=== PATIENT | female | born 1995 | race Caucasian/White ===

== ENCOUNTER 2024-02-28 09:31 | Inpatient (IN) | payer MEDICAID, SELFPAY ==
[2024-02-28] VITALS (15 sets, daily range): BP systolic 110–149; BP diastolic 59–86; PULSE 73–93; RESP 16–19; TEMP 36.1–36.6; O2SAT 97–100; BMI 45.5
--- NOTE | 2024-02-28 | FALS_PTH ---
PATIENT: TREVON RUSSELL LOC: [facility] U#:[id number] AGE/SX: 29/F ROOM: [facility] RE02/28/[address]: Dr. Nathaly Watkins, MDDOB: 1995 BED: 1 DIS: 03/01/2024 SPEC #: [id number] RECD: 02/28/24 09:14 STATUS: THEO NADIRA #: [id number] KALYANI: 02/28/24 00:[address]: Nathaly Watkins DEPT: SURGICAL PATHOLOGY RECD BY: Terence King ENTERED: 02/29/24 10:16 SP TYPE: FALL TUBES OTHR DR: Dr. Jason Villa, Tissues: Fallopian tube Procedures: Surgery Specimen Level II HEADER OPERATION: Tubal ligation PRE-OP DIAGNOSIS: Sterilization TISSUE SUBMITTED: Bilateral fallopian tubes- stitch on right MICROSCOPIC DIAGNOSIS Bilateral fallopian tubes, salpingectomy: Bilateral fallopian tubes, no pathologic diagnosis. JESS: 03/01/2024 MICROSCOPIC DESCRIPTION Slides are reviewed. GROSS DESCRIPTION Received in fixative is one container labeled with the patient's name and designated bilateral fallopian tubes- stitch on right. The specimen consists of bilateral fallopian tubes including fimbrial ends. Right fallopian tube measures 6.5 cm in length and 0.6 cm in diameter. Left fallopian tube measures 7.5cm in length and 0.6cm in diameter. Sections reveal unremarkable cut surfaces. Aerodynamicist sections are submitted in two cassettes. 1- right fallopian tube, 2- left fallopian tube. / JESS: 02/29/2024 TC:4 CPT: 77052 x2
[2024-02-28] MEDS: Lactated Ringers 1,000 ML 999 ML IV (10:10)
[2024-02-28 10:33] LABS: Absolute Lymphocyte Count 1.44 X10^3/uL (0.83-4.51); Absolute Neutrophil Count 9.8 X10^3/uL (2.0-7.7); Basophil# 0.03 X10^3/uL; Basophil% 0.3 % (0-1); Eosinophil# 0.05 X10^3/uL; Eosinophils% 0.4 % (0-5); Hematocrit 35.3 % (37-47); Hemoglobin 11.4 g/dL (12.0-15.0); Lymphocyte # 1.44 X10^3/ul (0.83-4.51); Lymphocyte % 12.1 % (19-41); Mean Corp Hgb Conc 32.3 g/dL (32-36); Mean Corpuscular Hgb 26.2 pg (27.0-32.0); Mean Corpuscular Volume 81.1 fL (81-99); Mean Platelet Vol. 10.8 fl (6.2-12.0); Monocyte# 0.51 X10^3/uL; Monocyte% 4.3 % (0-10); NRBC Flagged by Analyzer 0 % (0-5); Neutrophil # 9.78 X10^3/uL (2.7-7.7); Neutrophil % 82.2 % (47-70); Platelet Count 257 K/mm3 (150-450); Red Blood Count 4.35 M/mm3 (4.2-5.4); White Blood Count 11.9 K/mm3 (4.4-11.0)
[2024-02-28] MEDS: Lactated Ringers 1,000 ML 150 ML IV (11:11)
[2024-02-28] MEDS: Acetaminophen 500 MG Tablet 1000 MG PO ×3 (11:12→23:39)
[2024-02-28 11:26] LABS: Syphilis Antibodies Non-reactive
--- NOTE | 2024-02-28 11:46 | PCM.HP.BLA ---
History and Physical Date of Admission: 02/28/24 Expand All Collapse All Pre-Op History and Physical HPI: The patient is a 29 year old female presenting for pre-operative visit. She is scheduled for and bilateral salpingectomy, for repeat cs and desires sterilization on 02/28/24. Procedure discussed along with risks, benefits and complications. Other alternatives discussed for management. Consent form signed? Yes. PAST MEDICAL HISTORY PAST MEDICAL HISTORY 12/14/2023: Antepartum anemia complicating in third trimester 10/25/2019: Gestational hypertension, third trimester Comment: - BP on admission normal range - Labs 10/24 wnl - Asymptomatic - Repeat admission labs pending 08-05-2019: Hx of preeclampsia, prior , currently No date: Morbid obesity (HCC) PAST SURGICAL HISTORY PAST SURGICAL HISTORY 2019: DELIVERY ONLY CURRENT MEDICATIONS Current Outpatient Medications Medication Sig Dispense Refill ? omeprazole (PRILOSEC) 10 mg capsule Take 1 capsule by mouth once daily. 30 capsule 3 ? aspirin, enteric coated (ASPIRIN, ENTERIC COATED) 81 mg EC tablet Take 2 tablets by mouth once daily. Starting at 12 weeks. 100 tablet 3 ? acetaminophen (TYLENOL) 325 mg tablet Take 2 tablets by mouth every 4 hours as needed for Pain. 60 tablet 1 ? vit/iron fum/folic ac ( VITAMIN ORAL) Take 1 tablet by mouth once daily. ? Blood Pressure Kit-Extra Large kit 1 Each two times a day as needed. 1 Kit 0 ? Blood Pressure Test Kit-Large 1 Each once daily. 1 Each 0 No current facility-administered medications for this visit. ALLERGIES: Penicillins PERSONAL HISTORY: SOCIAL HISTORY Social History Tobacco Use ? Smoking status: Never ? Smokeless tobacco: Never Vaping Use ? Vaping status: Never Used Substance Use Topics ? Alcohol use: Not Currently ? Drug use: Not Currently FAMILY HISTORY: FAMILY HISTORY FAMILY HISTORY Problem Relation Age of Onset ? No Known Problems Mother ? No Known Problems Father ? No Known Problems Sister ? No Known Problems Maternal Grandmother ? No Known Problems Maternal Grandfather ? No Known Problems Paternal Grandmother ? No Known Problems Paternal Grandfather REVIEW OF SYMPTOMS: negative except as noted above PHYSICAL EXAMINATION: VITALS: Blood pressure 128/76, weight 120.2 kg (265 lb), last menstrual period 05/19/2023. GENERAL: The patient is well nourished, well hydrated in no acute distress. , The patient is oriented to time, place, and person. NECK: full range of motion LUNGS: ABDOMEN: gravid, non tender IMPRESSION: 29yo @ 37.4 weeks h/o c/s, desires sterilization PLAN: repeat cs and bilateral salpingectomy planned at 39 weeks Pt has been counseled on risks/benefits and alternatives of surgery including but not limited to anesthesia, bleeding, infection, injury to pelvic structures including bowel, bladder, ureters and vessels. Pt wishes to proceed with surgery at this time. Risk of transfusion reviewed. Pre op instructions reviewed. Pre op ancef x 3 g ordered- hives as a child- discussed possible small cross reactivity. Does not have anaphylaxis I have reviewed and updated past medical and surgical history, medications and allergies Nathaly Fowler MD Routine Office Visit on 02/18/2024 Note shared with patient
[2024-02-28] MEDS: Sodium Citrate/Citric Acid 30 ML UDC PO (11:55)
[2024-02-28] MEDS: Cefazolin 3 GM in 0.9% Normal Saline (100mL Bag) 100 ML IV (11:59)
--- NOTE | 2024-02-28 13:09 | OP.PCM_ITS ---
Details Operative Information Date of Procedure: 02/28/24 Pre-Operative Diagnosis: repeat c/s, 39 weeks, Obesity in , Desires sterilization Post-Operative Diagnosis: same, live female Classification: Scheduled Procedure Type: low transverse (Bilateral salpingectomy ) signal integrity engineer #1: Janet Saul Type of Anesthesia: Spinal Antibiotic Given: Ancef 3 grams IV x1 Drain: Daly to straight drain Estimated Blood Loss: 650 Fluids Replaced: 700 Procedure Start Time: 12:21 Procedure Stop Time: 13:01 Time of Delivery: 12:27 Findings Description of Procedure: After informed consent was obtained the patient was taken to the operating room she was given spinal anesthesia. she was placed in the supine position. She wa s then prepped and draped in normal sterile fashion. Once spinal anesthesia was found to be adequate skin incision was made with a scalpel in a Pfannenstiel fashion. It was carried down to the underlying layer of the fascia. Fascia was then incised midline with scapel and extended laterally using curved jasso. 2 straight Randi's were placed in the superior aspect of the fascial edge and the rectus muscles were dissected off sharply. Attention was then turned to the inferior aspect where again the fascial edge was grasped with 2 straight Sidney clamps tented up and the rectus muscle dissected off sharply. At this time the rectus muscles were seperated bluntly. Using blunt force the peritoneum was then entered. Metzenbaums were used to take down the rectus muscles inferiorly as well as the peritoneum. At this time the vesicouterine peritoneum was identified. Metzenbaum scissors were used to create a bladder flap and then taken down digitally. Uterine incision was made in a low transverse fashion with the scalpel and then entered bluntly. Gentle opposing traction was placed to extend the uterine incision. The membranes were ruptured amniotic fluid clear. 's head was then brought to the uterine incision was delivered atraumatically followed by the rest infant's body. Loose nuchal x 1 reduced prior to delivery of infant. At this time delayed cord clamping was performed mouth nose were suctioned. Infant was then handed to the waiting nursery team. The placenta was then removed with gentle traction. The uterus was removed from the intra-abdominal cavity is wrapped in a moist lap. He was cleared of all clots and debris using a moist lap. Ring clamps were placed on the uterine angles. #1 Vicryl suture was used in a running locked fashion for the first l kalen. At this time then the uterus was placed back into abdominal cavity uterine incision was evaluated and noted to be of good hemostasis. Tubes and ovaries were evaluated they were normal. The tubes were grasped in an avascular area with the Jean ligasure used to coagulate and ligate along mesosalpinx to remove tubes completely- repeated on both sides. uterus was placed back into the abdominal cavity. Great hemostasis was appreciated at this time the uterine incision was again evaluated good hemostasis was appreciated. The peritoneum was grasped with Kellys. Peritoneum was reapproximated using #2 Vicryl suture in a running fashion. The fascia was found to be very thin but intact and was then reapproximated using #1 PDS in a running fashion. Subcutaneous layer was evaluated and Bovie was used for any small oozing that was noted, irrigated with NS and then closed with #2-0 plain gut suture was then used to reapproximate the subcutaneous layer 4-0 Vicryl on a Bobby needle was used to reapproximate the skin in a subcutaneous fashion. Dry sterile dressing was applied. Instrument lap needle count were correct ?2. Anticipated normal postoperative course for this patient. Presentation: Positive for Vertex Amniotic Membrane Rupture Type: Artificial Amniotic Fluid Description: Clear Placental Delivery Description: Spontaneous Placenta Disposition: [facility] Cord Vessel Description: 3 Vessels Cord Entanglement: Around neck x 1, loose Nuchal Cord Compression: Without compression A Gender: Female (1 minute): 9 (5 minute): 9 Delayed Cord Clamping: Yes Complications Risks of Surgery Discussed w/Patient: Bleeding, Anesthesia Risks, Infection, Permanency, Injury to surrounding structure(s) including bowel and bladder and Availability of other non-permanent control options Complications: none
[2024-02-28] MEDS: Oxytocin 15 Units/NS 250ml 15 UNITS/250 ML IV.SOLN 83 UNITS IV (13:22)
[2024-02-28] MEDS: 0.9% Saline Lock 10 ML Syringe IV (13:58)
[2024-02-28] MEDS: Ketorolac 30 MG/ML Syringe IV ×2 (13:58→20:05)
[2024-02-28] MEDS: Lactated Ringers 1,000 ML 100 ML IV (16:22)
--- NOTE | 2024-02-28 17:39 | NURSING ---
serena made aware of drainage on dressing while making rounds
--- NOTE | 2024-02-28 19:33 | NURSING ---
silver mepilex changed per Jcostas request. Old dressing removed without difficulty with moderate amount serosanguinous drainage. No active bleeding noted. sterile silver mepilex dressing. Tolerated well
[2024-02-28 23:06] LABS: Pathology Specimen OB SEE PATHOLOGY REPORT
[2024-02-29] MEDS: Enoxaparin 40 MG/0.4 ML Syringe SC ×2 (00:41→14:10)
[2024-02-29] MEDS: Ketorolac 30 MG/ML Syringe IV ×2 (02:03→08:14)
[2024-02-29] MEDS: 0.9% Saline Lock 10 ML Syringe IV ×3 (02:04→08:15)
[2024-02-29 04:03] VITALS: BP 130/83; PULSE 80; RESP 16; TEMP 36.4; O2SAT 100
[2024-02-29] MEDS: Rho(D) Immune Globulin 300 MCG (1500 Unit) Syringe IV (04:47)
[2024-02-29 05:23] LABS: Hematocrit 32.2 % (37-47); Hemoglobin 10.1 g/dL (12.0-15.0); Mean Corp Hgb Conc 31.4 g/dL (32-36); Mean Corpuscular Hgb 25.7 pg (27.0-32.0); Mean Corpuscular Volume 81.9 fL (81-99); Mean Platelet Vol. 10.7 fl (6.2-12.0); Platelet Count 220 K/mm3 (150-450); RBC Distribution Width CV 17.1 % (11.6-14.6); RBC Distribution Width SD 50.9 fl (35.1-43.9); Red Blood Count 3.93 M/mm3 (4.2-5.4); White Blood Count 11.5 K/mm3 (4.4-11.0)
[2024-02-29] MEDS: Acetaminophen 500 MG Tablet 1000 MG PO ×4 (05:40→23:20)
[2024-02-29 08:02] VITALS: BP 136/77; PULSE 75; RESP 18; TEMP 36.3; O2SAT 98
--- NOTE | 2024-02-29 08:59 | PCM.PN.OB ---
Subjective Subjective Doing well. Ambulating and voiding without difficulty. Mild lochia. Bottle feeding. Pain managed Objective Data Objective Data Vital Signs: Vital Signs Temp Pulse Resp BP Pulse Ox O2 Del Method 97.3 F L 75 18 136/77 H 98 Room Air 02/29/24 08:02 02/29/24 08:02 02/29/24 08:02 02/29/24 08:02 02/29/24 08:02 02/29/24 08:02 Oxygen Delivery Method Room Air Weight: 120.287 kg Body Mass Index (BMI) 45.5 Intake & Output: Intake and Output for Last 24 Hours 02/27/24 02/28/24 02/29/24 23:59 23:59 23:59 Intake Total 1831.5 / 1831.5 838.33 / 838.33 Output Total 1095 / 1095 1100 / 1100 Balance 736.5 / 736.5 -261.67 / -261.67 Lab / Micro Data 02/29/24 05:10 Labs: Laboratory Results - last 24 hr 02/28/24 10:15: WBC 11.9 H, RBC 4.35, Hgb 11.4 L, Hct 35.3 L, MCV 81.1, MCH 26.2 L, MCHC 32.3, RDW Std Deviation 50.0 H, RDW Coeff of Caroline 17.0 H, Plt Count 257, MPV 10.8, Immature Gran % (Auto) 0.700, Neut % (Auto) 82.2 H, Lymph % (Auto) 12.1 L, [place] % (Auto) 4.3, Eos % (Auto) 0.4, Baso % (Auto) 0.3, Absolute Neuts (auto) 9.8 H, Absolute Lymphs (auto) 1.44, Nucleated RBC % 0, Syphilis Total Ab Non-reactive, Blood Type O NEGATIVE, Antibody Screen NEGATIVE 02/28/24 15:09: Screen NEGATIVE, Baby's Blood Type O POSITIVE, Baby's COOPER POSITIVE 02/29/24 05:10: WBC 11.5 H, RBC 3.93 L, Hgb 10.1 L, Hct 32.2 L, MCV 81.9, MCH 25.7 L, MCHC 31.4 L, RDW Std Deviation 50.9 H, RDW Coeff of Caroline 17.1 H, Plt Count 220, MPV 10.7 ROS Constitutional Constitutional: Denies fatigue, fever(s) or malaise Eyes Eyes: Denies change in vision ENT HEENT: Denies dizziness or headache(s) Cardiovascular Cardiovascular: Denies chest pain, dyspnea or lightheadedness Respiratory/Chest Respiratory/Chest: Denies cough or dyspnea Gastrointestinal Gastrointestinal: Denies change in bowel habits Genitourinary Genitourinary: Denies burning urination or genital lesions Integumentary Integumentary: Denies rash Neurologic Neurologic: Denies confusion, dizziness, headache(s), numbness or weakness Physical Exam Const alert General Appearance: cooperative GI GI Narrative: soft, moderate distention, fundus firm, appropriately tender. Abdominal bandage clean dry and intact Assessment & Plan (1) S/P repeat low transverse : (2) Sterilization:
[2024-02-29] MEDS: Senna/Docusate Sodium 1 Tablet PO (11:11)
[2024-02-29 12:30] VITALS: BP 127/77; PULSE 79; RESP 16; TEMP 36.1; O2SAT 98
[2024-02-29] MEDS: Ibuprofen 600 MG Tablet PO ×2 (14:09→19:47)
--- NOTE | 2024-02-29 14:14 | NURSING ---
student charting reviewed
[2024-02-29 15:51] VITALS: BP 133/89; PULSE 77; RESP 16; TEMP 36.3; O2SAT 100
[2024-02-29 19:44] VITALS: BP 125/85; PULSE 75; RESP 16; TEMP 36.7; O2SAT 99
[2024-03-01 01:23] VITALS: BP 128/85; PULSE 74; RESP 16; TEMP 36.9
[2024-03-01] MEDS: Enoxaparin 40 MG/0.4 ML Syringe SC (01:32)
[2024-03-01] MEDS: Ibuprofen 600 MG Tablet PO ×3 (01:32→13:55)
[2024-03-01] MEDS: Acetaminophen 500 MG Tablet 1000 MG PO ×2 (05:13→11:30)
--- NOTE | 2024-03-01 07:42 | PCM.PN.OB ---
Subjective Subjective Doing well. Ambulating and voiding without difficulty. Mild lochia. Bottle feeding. Pain managed Objective Data Objective Data Vital Signs: Vital Signs Temp Pulse Resp BP Pulse Ox O2 Del Method 98.4 F 74 16 128/85 H 99 Room Air 03/01/24 01:23 03/01/24 01:23 03/01/24 01:23 03/01/24 01:23 02/29/24 19:44 03/01/24 01:23 Oxygen Delivery Method Room Air Weight: 120.287 kg Body Mass Index (BMI) 45.5 Intake & Output: Intake and Output for Last 24 Hours 02/28/24 02/29/24 03/01/24 23:59 23:59 23:59 Intake Total 1831.5 / 1831.5 838.33 / 838.33 Output Total 1095 / 1095 1100 / 1100 Balance 736.5 / 736.5 -261.67 / -261.67 Lab / Micro Data 02/29/24 05:10 ROS Constitutional Constitutional: Denies fatigue, fever(s) or malaise Eyes Eyes: Denies change in vision ENT HEENT: Denies dizziness or headache(s) Cardiovascular Cardiovascular: Denies chest pain, dyspnea or lightheadedness Respiratory/Chest Respiratory/Chest: Denies cough or dyspnea Gastrointestinal Gastrointestinal: Denies change in bowel habits Genitourinary Genitourinary: Denies burning urination or genital lesions Integumentary Integumentary: Denies rash Neurologic Neurologic: Denies confusion, dizziness, headache(s), numbness or weakness Physical Exam Const alert General Appearance: cooperative GI GI Narrative: soft, moderate distention, fundus firm, appropriately tender. Abdominal bandage clean dry and intact Assessment & Plan (1) S/P repeat low transverse : (2) Sterilization: PLAN: Plan discharge home
--- NOTE | 2024-03-01 07:43 | PCM.DC.SUM ---
Providers Date of Admission: 02/28/24 Date of Discharge: 03/01/24 Primary Care Physician: Dr. Jason Villa DO Reason For Visit: REPEAT C SECTION,REPEAT DELIVERY Diagnosis Discharge Diagnosis (1) S/P repeat low transverse : Status: Acute Code(s): Z98.891 - History of uterine scar from previous surgery (2) Sterilization: Status: Acute Code(s): Z30.2 - Encounter for sterilization Plan discharge home Medications at Discharge Home Medications omeprazole 10 mg capsule,delayed release 10 mg PO DAILY Heartburn 02/28/24 vit no.95-ferrous fumarate 28 mg-folic acid 800 mcg tablet () 1 tab PO DAILY 02/28/24 ibuprofen 600 mg tablet 600 mg PO Q6H #30 tabs 03/01/24 Hospital Course Operations section (w/tubal) Summary of Care Provided Minutes Spent on Discharge: 22 Hospital Course: Scheduled repeat with tubal. Uncomplicated . Physical Exam Const alert General Appearance: cooperative GI GI Narrative: soft, moderate distention, fundus firm, appropriately tender. Abdominal bandage clean dry and intact Weight / BMI Weight Weight: 120.287 kg Body Mass Index (BMI) 45.5 ABG / Lab / Microbiology Data 02/29/24 05:10 D/C Instructions Discharge Diet: No restrictions May resume sexual activity in: 4-6 weeks Lifting Restrictions: 20 pounds Additional Activity Instructions: Nothing in the vagina for 4-6 weeks. You may return to work/school in 6 weeks. Call your doctor if your incision/area has: Continuous Slow Oozing, Sudden Increased Bleeding, Increased Pain/ Swelling, Increased Redness and Foul Smelling Discharge Call your doctor if you observe: Fever of 101 or Higher and Using more than 1 pad per hour (for 2 hours) Suture Line Care: Avoid Pulling/Pushing and Avoid Pinching/Bending Cleanse incision/area with: Keep Dressing Clean & Dry Please Follow Up With: Jenifer Dickinson MD When: Call to make an appointment for an incision check in 1-2 [phone]. You will need a post check in 6 weeks. Meaningful Use Info Meaningful Use Meaningful Use Diagnoses (Choose all that apply): None applicable Ischemic Stroke Statin Dosing Therapy Reference: STATIN DOSE THERAPY REFERENCE: * Patients > 75 years receive moderate or high dose statin therapy. * Patients 75 years or YOUNGER should receive HIGH intensity statin dose unless contraindicated. You will be required to document reason for non-treatment if statin daily dose does not meet guidelines. HIGH DOSE STATIN THERAPY DAILY Atorvastatin > than or = to 40 mg Rosuvastatin > than or = to 20 mg Amlodipine + Atorvastatin > than or = to 2.5/40 mg Ezetimibe + Simvastatin 10/80 mg Simvastatin 80mg Discharge Plan Admission Admit Date/Time: 02/28/24 09:31 Primary Reason for Your Visit: repeat Attending Provider: Nathaly Watkins Primary Care Provider: Jason Villa Discharge Orders/Prescriptions Prescriptions: New ibuprofen 600 mg Tablet 600 mg PO Q6H Qty: 30 0RF Continued omeprazole 10 mg capsule,delayed release(DR/EC) 10 mg PO DAILY PNV cmb#95-ferrous fumarate-FA [] 28 mg iron- 800 mcg tablet 1 tab PO DAILY Discontinued aspirin 81 mg tablet,delayed release (DR/EC) 162 mg PO DAILY Referrals / Follow Up: Jason Villa DO [Primary Care Provider] - Disposition Disposition (needs filled in before D/C Order can be placed): Home, Self Care
[2024-03-01 08:04] VITALS: BP 131/85; PULSE 68; RESP 16; TEMP 36.4; O2SAT 98
[2024-03-01] MEDS: Senna/Docusate Sodium 1 Tablet PO (08:19)
[2024-03-01 13:23] VITALS: BP 140/78; PULSE 83; RESP 13; TEMP 36.7; O2SAT 99
== END 2024-03-01 14:00 | disposition home or self-care (01) | DRG 539 ==
PROVIDERS: Admitting Provider Obstetrics & Gynecology; PCP Family Medicine; Referring Provider Obstetrics & Gynecology; Visit Provider Obstetrics & Gynecology
PROC: 10D00Z1 Extraction of Products of Conception, Low, Open Approach (ICD-10-PCS; CPT 59514; principal; 2024-02-28 11:45)
DX: O34.211 Maternal care for low transverse scar from previous cesarean delivery (principal); O69.81X0 Labor and delivery complicated by cord around neck, without compression, not applicable or unspecified; O99.214 Obesity complicating childbirth; Z30.2 Encounter for sterilization; Z37.0 Single live birth; Z3A.39 39 weeks gestation of pregnancy
CPT/HCPCS: 59025; 59050; 85025; 85027; 85461; 86780; 86850; 86900; 86901; 88302; 90384; 99221; J7120; A4216; G0378; J2405; J2790; J2791